=== PATIENT | female | born 1960 | race Caucasian/White ===

== ENCOUNTER 2018-05-16 13:53 | Outpatient (CLI) | payer BC ==
--- NOTE | 2018-05-16 14:58 | RAD ---
LEFT KNEE 2 VIEWS: HISTORY: Left knee pain, arthritis. FINDINGS: Degenerative changes are present. No fracture, dislocation, or bony destruction is seen. Degenerati ve changes are most prominent in the lateral tibiofemoral compartment. POS: [facility]
--- NOTE | 2018-05-16 14:59 | RAD ---
RIGHT KNEE 2 VIEWS: HISTORY: Right knee pain. FINDINGS/IMPRESSION: Mild degenerative changes are present. No fracture, dislocation, or bony destruction is seen. POS: [facility]
== END 2018-05-16 13:54 | disposition home or self-care (01) ==
LOC: BICRAD 13:53
PROVIDERS: ATTEND Family Medicine
DX: M17.0 Bilateral primary osteoarthritis of knee (principal)

== ENCOUNTER 2019-04-12 12:49 | Outpatient (CLI) | payer BC ==
--- NOTE | 2019-04-12 13:16 | RAD ---
EXAM: Two views chest PROVIDED CLINICAL HISTORY: Dyspnea COMPARISON: None FINDINGS: Cardiac and mediastinal silhouette appears within normal limits. Lungs appear free of significant opa city. No pleural fluid or pneumothorax apparent. IMPRESSION: No evidence for an acute cardiopulmonary process.
== END 2019-04-12 12:50 | disposition home or self-care (01) ==
LOC: RAD 12:49
PROVIDERS: ATTEND Internal Medicine Pulmonary Disease
DX: R06.00 Dyspnea, unspecified (principal)
CPT/HCPCS: 71046

== ENCOUNTER 2021-06-30 14:45 | Outpatient (CLI) | payer BC | END 2021-06-30 14:46 | disposition home or self-care (01) | LOC: BICRAD 14:45 | PROVIDERS: ATTEND Nurse Practitioner Family | DX: R79.81 Abnormal blood-gas level (principal) | CPT/HCPCS: 71046 ==